=== PATIENT | female | born 1975 | race Asian ===

== ENCOUNTER 2018-05-05 13:30 | Outpatient (AMBR) | payer MEDICAID, SELFPAY ==
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
--- NOTE | 2018-04-27 12:48 | PT.ODAYNRPT ---
PT Outpatient Daily Note Date of Service: April 27, 2018 OP Daily Note Visit Reasons: Pain Outpatient Physical Therapy Treatment Date: 04/27/18 Subjective: About the same as time of evaluation Objective: See F/S for therex MT: HVT rotary to L/S x1 B, long axis hip distraction R LE x7' Assessment: Good exercise tolerance with low tissue irritability and TTP of L/S. R glute by ischial tuberosity and Sherri's area is TTP. Plan: Continue per POC Length of Time (minutes) of Treatment: 30 Minutes Office Procedures PT Procedures PT Date of Service: 04/27/18 Therapeutic Exercise 30 minutes: Yes PT Procedures PT Date of Service: 04/21/18 OP PT Eval Mod Complex 30 minutes: Yes
--- NOTE | 2018-04-29 17:26 | PTNOTE_ITS ---
PT Outpatient Daily Note Date of Service: April 29, 2018 OP Daily Note Visit Reasons: Pain Subjective: [place] better after last visit, less pain Objective: See F/S for therex MT: rotary oscillations to L/S, long axis hip distraction R LE x7' Assessment: Good exercise tolerance with low tissue irritability and TTP of L/S. R glute by ischial tuberosity and Sherri's area is TTP. Plan: Continue per POC Length of Time (minutes) of Treatment: 30 Minutes Office Procedures PT Procedures PT Date of Service: 04/27/18 Therapeutic Exercise 30 minutes: Yes PT Procedures PT Date of Service: 04/29/18 Therapeutic Exercise 30 minutes: Yes PT Procedures PT Date of Service: 04/21/18 OP PT Eval Mod Complex 30 minutes: Yes
--- NOTE | 2018-05-03 15:00 | PT.ODAYNRPT ---
PT Outpatient Daily Note Date of Service: May 03, 2018 OP Daily Note Visit Reasons: Pain Outpatient Physical Therapy Treatment Date: 05/03/18 Subjective: [place] better after last visit, less pain Objective: See F/S for therex MT: resisted LTR's with TB FF x7' Assessment: R glute by ischial tuberosity and Sherri's area are provoked by piriformis stretching. Good exercise tolerance with low tissue irritability and TTP of L/S. Plan: Continue per POC Office Procedures PT Procedures PT Date of Service: 04/27/18 Therapeutic Exercise 30 minutes: Yes PT Procedures PT Date of Service: 04/29/18 Therapeutic Exercise 30 minutes: Yes PT Procedures PT Date of Service: 05/03/18 Therapeutic Exercise 30 minutes: Yes PT Procedures PT Date of Service: 04/21/18 OP PT Eval Mod Complex 30 minutes: Yes
--- NOTE | 2018-05-05 18:37 | PTNOTE_ITS ---
PT Outpatient Daily Note Date of Service: May 05, 2018 OP Daily Note Visit Reasons: Pain Outpatient Physical Therapy Treatment Date: 05/05/18 Subjective: [place] better after last visit, less pain Objective: See F/S for therex MT: resisted LTR's with TB FF x7' Assessment: R glute by ischial tuberosity and Sherri's area are provoked by piriformis stretching. Good exercise tolerance with low tissue irritability and TTP of L/S. Plan: Continue per POC Length of Time (minutes) of Treatment: 30 Minutes Office Procedures PT Procedures PT Date of Service: 04/27/18 Therapeutic Exercise 30 minutes: Yes PT Procedures PT Date of Service: 04/29/18 Therapeutic Exercise 30 minutes: Yes PT Procedures PT Date of Service: 05/03/18 Therapeutic Exercise 30 minutes: Yes PT Procedures PT Date of Service: 05/05/18 Therapeutic Exercise 30 minutes: Yes PT Procedures PT Date of Service: 04/21/18 OP PT Eval Mod Complex 30 minutes: Yes
== END 2018-05-05 14:30 | disposition home or self-care (01) ==
PROVIDERS: PCP Nurse Practitioner; Referring Provider Nurse Practitioner; Visit Provider Physician Assistant Medical
DX: M54.41 Lumbago with sciatica, right side (principal)
CPT/HCPCS: 97110; 97162